=== PATIENT | female | born 1970 | race Caucasian/White ===

== ENCOUNTER 2020-04-15 19:22 | Emergency (ER) | payer BC, OTHER ==
--- NOTE | 2020-04-15 19:30 | PDOC ---
History of Present Illness - General Chief Complaint: Chronic pain Stated Complaint: Right Hip pain Time Seen by Provider: 04/15/20 19:29 History Source: Patient Exam Limitations: No Limitations - History of Present Illness Initial Comments: 04/15/20 19:56 This is a 50-year-old female with a long complicated history of right-sided hip pain. 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 Patient has had multiple diagnostic imaging including multiple MRIs and CAT scans. Patient prescription management program was queried and patient received 240 tablets of 20 mg of oxycodone on the first of this month. In addition patient also received 90 mg of clonazepam on the first of the month. Allergies: as per nursing notes Past Medical History: none Social history: Lives with family. No smoking. No alcohol. No illicit drugs. Surgical history: None General: No fevers or chills, no weakness, no weight loss HEENT: No change in vision. No sore throat,. No ear pain CardioVascular: no chest discomfort. No shortness of breath Respiratory:No cough, or wheezing. Gastrointestinal: no nausea, vomiting, diarrhea or constipation, No rectal bleeding Genitourinary: No dysuria, hematuria, or frequency Musculoskeletal: Right hip and groin pain Neurologic: No headache, vertigo, dizziness or loss of consciousness Psychiatric: nor depression Skin: No rashes or easy bruising Endocrine: no increased thirst or abnormal weight change Allergic: no skin or latex allergy All other systems reviewed and normal GENERAL: The patient is awake, alert, and fully oriented, in no acute distress. HEENT:Head is normal with no signs of trauma. Eyes: Pupils equal, round and reactive to light, Ears, and Throat are normal. Neck is supple. No Lymphadenopathy. EXTREMITIES:atraumatic, Normal range of motion, no edema. There is tenderness on palpation of the right hip and groin with limited range of motion secondary to pain neurovascular is intact. NEUROLOGICAL: Normal speech, normal gait. PSYCH: Normal mood, normal affect. SKIN: Warm, Dry, normal turgor, no rashes or lesions noted Patient's orthopedist Dr. Walker was contacted who recommends that we give patient a injection of Toradol and have her call to his office in the morning and he will fit her into his office for a visit on Past History - Medical History Allergies/Adverse Reactions: Allergies Allergy/AdvReac Type Severity Reaction Status Date / Time No Known Allergies Allergy Verified 04/15/20 19:26 Home Medications: Ambulatory Orders Clonazepam [Klonopin] 1 mg PO BID 06/30/15 Oxycodone HCl/Acetaminophen [Percocet 10-325 mg Tablet -] 1 - 2 tab PO BID 06/30/15 Oxycodone HCl/Acetaminophen [Percocet 10-325 mg Tablet -] 1 - 2 tab PO Q4H PRN #30 tablet 07/02/15 Naproxen BID 04/15/20 Oxycodone HCl 20 mg PO BID 04/15/20 Anemia: No Asthma: No Cancer: No Cardiac Disorders: No CVA: No COPD: No CHF: No Dementia: No Diabetes: No GI Disorders: No Disorders: No HTN: No Hypercholesterolemia: No Liver Disease: No Seizures: No Thyroid Disease: No - Surgical History Abdominal Surgery: No Appendectomy: No Cardiac Surgery: No Cholecystectomy: No Lung Surgery: No Neurologic Surgery: No Orthopedic Surgery: No - Psycho-Social/Smoking History Smoking History: Current some day smoker Have you smoked in the past 12 months: Yes 'Breaking Loose' booklet given: 06/30/15 Discharge - Discharge Information Problems reviewed: Yes Clinical Impression/Diagnosis: Chronic right hip pain Condition: Stable Disposition: HOME - Admission No - Follow up/Referral Referrals: Pierre Walker MD [Primary Care Provider] - - Patient Discharge Instructions Additional Instructions: Continue to take all of your pain medications as prescribed. Call your doctor in the morning and he said he will fit you in on . Return to the emergency department immediately with ANY new, persistent or worsening symptoms. Continue any medications as previously prescribed by your physician. You should follow up with your primary doctor as soon as possible regarding today's emergency department visit. . Please make sure your doctor reviews the results of your emergency evaluation. Thank you for coming to the Emergency Department today for your care. It was a pleasure to see you today. Please note that your evaluation is INCOMPLETE until you follow-up with your doctor. - Post Discharge Activity
[2020-04-15 19:48] VITALS: BP 143/78; PULSE 101; TEMP 97.8; BMI 24.4
[2020-04-15] MEDS ORDERED: KETOROLAC TROMETHAMINE 60 MG/2 ML VIAL IM ONE (19:55)
[2020-04-15] MEDS ORDERED: KETOROLAC TROMETHAMINE 60 MG/2 ML VIAL ONE (19:56)
== END 2020-04-15 20:08 | disposition home or self-care (01) ==
LOC: FER 19:22
PROC: 3E0233Z Introduction of Anti-inflammatory into Muscle, Percutaneous Approach (ICD-10-PCS; principal; 2020-04-15)
DX: M25.551 Pain in right hip (principal)
CPT/HCPCS: 99284-25